=== PATIENT | female | born 1985 | race Caucasian/White ===

== ENCOUNTER 2020-01-02 05:19 | Outpatient (RCR) | payer OTHER ==
[~2020-01-02] VITALS: Ht 175 cm; Wt 111.3 kg
[2020-01-02] MEDS ORDERED: ESCI20TA PO (12:49)
[2020-01-02] MEDS ORDERED: PANT40TA52 PO (12:49)
[2020-01-02] MEDS ORDERED: DOCU-143 PO (12:49)
[2020-01-02] MEDS ORDERED: FERR325T18 PO (12:49)
[2020-01-02] MEDS ORDERED: CANA100T PO (12:49)
[2020-01-02] MEDS ORDERED: LOVA20TA2 PO (12:49)
[2020-01-02] MEDS ORDERED: QUET25TA PO (12:49)
[2020-01-02] MEDS ORDERED: GBPN600T PO (12:49)
[2020-01-02] MEDS ORDERED: FESO8TAB PO (12:49)
[2020-01-02] MEDS ORDERED: METF-397 PO (12:49)
== END 2020-01-02 14:39 | disposition home or self-care (01) ==
LOC: PREOP 05:19
PROVIDERS: ATTEND Podiatrist Foot & Ankle Surgery
DX: Z01.818 Encounter for other preprocedural examination (principal)

== ENCOUNTER 2020-01-09 06:00 | Day surgery (SDC) | payer MEDICAID, OTHER ==
[~2020-01-09] VITALS: Ht 175 cm; Wt 111.3 kg
[2020-01-09] VITALS (10 sets, daily range): BP systolic 119–140; BP diastolic 69–92
[~2020-01-09 06:00] MED LIST: CANA100T PO; DOCU-143 PO; ESCI20TA PO; FERR325T18 PO; FESO8TAB PO; GBPN600T PO; LOVA20TA2 PO; METF-397 PO; PANT40TA52 PO; QUET25TA PO
[2020-01-09] MEDS ORDERED: LACTATED RINGERS 1,000 ML IV PRN (06:34)
[2020-01-09] MEDS ORDERED: ceFAZolin INJECTION 1,000 MG in WATER (STERILE) FOR INJECTION 10 ML IV ONE (06:45)
[2020-01-09] MEDS ORDERED: proPOfol 200 MG/20 ML (DIPRIVAN) VIAL IV ONE (07:05)
[2020-01-09] MEDS ORDERED: SEVOFLURANE (ULTANE) 15 ML INHAL SOLN ONE ×4 (07:05→09:05)
[2020-01-09] MEDS ORDERED: ONDANSETRON 4 MG/2 ML (SDV) Z0FRAN ONE (07:05)
[2020-01-09] MEDS ORDERED: LIDOCAINE PF 2% 5 ML (XYLOCAINE) VIAL ONE (07:05)
[2020-01-09] MEDS ORDERED: MIDAZOLAM 2 MG/2 ML (VERSED) VIAL ONE (07:06)
[2020-01-09] MEDS ORDERED: fentaNYL INJECTION 100 MCG/2 ML AMP ONE (07:06)
[2020-01-09] MEDS ORDERED: BUPIVACAINE 0.5% 30 ML (SENSORCAINE) VIAL ONE (07:27)
--- NOTE | 2020-01-09 07:48 | Progress Note-Pre Operative ---
Pre-Operative Progress Note H&P Reviewed The H&P was reviewed, patient examined and no changes noted. Date Seen by Provider: Jan 09, 2020 Time Seen by Provider: 07:48 Date H&P Reviewed: Jan 09, 2020 Time H&P Reviewed: 07:48 Pre-Operative Diagnosis: Soft Tissue Lesion left foot NEO MARKS DPM Jan 09, 2020 07:48
[2020-01-09] MEDS ORDERED: LACTATED RINGERS 1,000 ML IV SCH (08:50)
--- NOTE | 2020-01-09 08:50 | Progress Note-Post Operative ---
Post-Operative Progess Note Surgeon (s)/Land Sales Agent (s) Surgeon NEO MARKS DPM Land Sales Agent: none Pre-Operative Diagnosis Soft Tissue Lesion left foot Post-Operative Diagnosis same Procedure & Operative Findings Date of Procedure 01/09/20 Procedure Performed/Findings Excision of soft tissue lesion, left foot Anesthesia Type General Estimated Blood Loss Estimated blood loss (mL): Minimal Specimens/Packing Specimens Removed Soft Tissue left foot NEO MARKS DPM Jan 09, 2020 08:50
[2020-01-09] MEDS ORDERED: ACHD5005 PO (08:54)
[2020-01-09] MEDS ORDERED: ONDANSETRON 4 MG/2 ML (SDV) Z0FRAN IVP PRN (09:00)
[2020-01-09] MEDS ORDERED: morphine INJ 10 MG/ML 1ML (SYR OR VIAL) IVP ONE (09:00)
[2020-01-09] MEDS ORDERED: HYDROcodone/APAP 5 MG/325 MG (LORTAB) TAB PO PRN (09:00)
--- NOTE | 2020-01-09 09:03 | Anesthesia-General Post-Op ---
General Patient Condition Mental Status/LOC: Same as Preop Cardiovascular: Satisfactory Nausea/Vomiting: Absent Respiratory: Satisfactory Pain: Controlled Complications: Absent Post Op Complications Complications None Follow Up Care/Instructions Patient Instructions None needed. Anesthesia/Patient Condition Patient Condition Patient is doing well, no complaints, stable vital signs, no apparent adverse anesthesia problems. No complications reported per nursing. SHARON GARCIA CRNA Jan 09, 2020 09:03
--- NOTE | 2020-01-09 13:48 | OPERATIVE REPORT ---
DATE OF SERVICE: 01/09/2020 SURGEON: Iva Ahuja DPM. PREOPERATIVE DIAGNOSIS: Soft tissue lesion, left foot. POSTOPERATIVE DIAGNOSIS: Soft tissue lesion, left foot. PROCEDURE: Excision of soft tissue lesion, left foot. WOUND CLASS: Clean. ANESTHESIA: General. HEMOSTASIS: Pneumatic ankle tourniquet at 250 mmHg. INDICATIONS: This 34-year-old female presents complaining of a painful skin lesion of the left foot. Plantar aspect of the left proximal arch. She reports that she had had several practitioners treated as if it was a wart or other skin lesions and it did seem to get bigger and more symptomatic for her. It is painful with ambulation and/or standing. She is agreeable to surgical intervention after risks and complications were discussed at length. No guarantees were extended to the patient and she is willing to proceed. We talked about complications from weightbearing if she was to step on the foot after the procedure, she has a higher risk of having the sutures pull through and a painful scar as a result. We also discussed the need to discontinue tobacco use to allow this to heal as best as she possibly can. She has agreed to discontinue tobacco use. DESCRIPTION OF PROCEDURE: The patient was brought back to the operating table, placed in secure supine position. General anesthetic was then induced. Appropriate timeout was performed with clear identification of the laterality and procedure. The left foot was affected with 10 mL of 0.5% Marcaine and injecting a local infusion to the plantar aspect of the left foot at the surgical site. The left foot had a tourniquet placed over the left lower extremity over several layers of padding. Left foot was then prepped and draped in normal sterile manner. The left foot was then elevated, allowed to exsanguinate after which the tourniquet was inflated to 250 mmHg. Attention was then directed to the plantar aspect of the left proximal mid arch where the lesion was identified to be approximately 1.2 x 1.4 cm. An incision pattern was delineated from medial to lateral and two curvilinear incisions. The medial to lateral length ended up being approximately 4.5 cm. This allowed the entire lesion to be circumscribed. The incision was deepened down to the subcutaneous tissue and adipose layer was identified. The skin lesion extended down into the adipose layer approximately 1 cm. No other abnormalities were identified in the subcutaneous tissue. Utilizing electrocautery, the active bleeders were addressed. The skin edges were undermined utilizing blunt dissection. The wound was flushed with copious amounts of normal saline. The specimen was sent for gross and microscopic evaluation. Utilizing a 3-0 Prolene in a simple interrupted type stitch. The skin edges were approximated except for the central aspect or the widest part of the incision, which had a vertical mattress stitch applied. Good skin apposition was appreciated at this time without excessive tension. The wound was dressed utilizing Betadine soaked Adaptic, sterile 4 x 4, sterile Kerlix all secured with a Coban wrap. The patient tolerated the anesthesia and procedure well and was transported from the operating room to the recovery area with vital signs stable and vascular status intact to all digits of the left foot. She was given postoperative instructions to be absolutely nonweightbearing on the left lower extremity utilizing crutches or a knee scooter. She is to leave the dressing intact. She has my cell number should she needs to get a hold me for any reason. She was given a postoperative prescription included hydrocodone. We will see her in the office in 10 days' period of time or sooner if necessary. Job ID: [id number] DocumentID: [id number] Dictated Date: 01/09/2020 09:02:44 Space Operations Date: 01/09/2020 13:48:23 Dictated By: NAYELI IYER
== END 2020-01-09 10:35 | disposition home or self-care (01) ==
LOC: SDC 06:00
PROVIDERS: ATTEND Podiatrist Foot & Ankle Surgery
DX: D23.72 Other benign neoplasm of skin of left lower limb, including hip (principal); F32.9 Major depressive disorder, single episode, unspecified; K21.9 Gastro-esophageal reflux disease without esophagitis; E11.9 Type 2 diabetes mellitus without complications; F17.210 Nicotine dependence, cigarettes, uncomplicated; Z79.899 Other long term (current) drug therapy; Z88.8 Allergy status to other drugs, medicaments and biological substances
CPT/HCPCS: 82962; 84703; 87081; 88305; 88341; 88342